=== PATIENT | female | born 1975 | race Caucasian/White ===

== ENCOUNTER 2023-03-12 19:46 | Inpatient (IN) | payer MEDICAID, SELFPAY ==
[2023-03-12 19:25] VITALS: BP 122/71; PULSE 131; RESP 20; TEMP 36.5; O2SAT 100
[2023-03-12 19:53] VITALS: BMI 31.0
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
[2023-03-12] MEDS: gabapentin 300 mg Capsule 600 MG PO (21:28)
[2023-03-12] MEDS: amitriptyline 25 mg Tablet 50 MG PO (21:28)
[2023-03-12] MEDS: atorvastatin 40 mg Tablet PO (21:28)
[2023-03-12] MEDS: ziprasidone hcl 40 mg Capsule PO (21:28)
[2023-03-12] MEDS: tizanidine 4 mg Tablet PO (21:52)
[2023-03-12 22:00] VITALS: BP 122/71; PULSE 131; RESP 20; TEMP 36.5; O2SAT 100
[2023-03-12] MEDS: acetaminophen 325 mg Tablet 650 MG PO (23:55)
[2023-03-13] MEDS: trazodone 50 mg Tablet PO ×3 (01:52→23:30)
[2023-03-13 06:00] VITALS: BP 105/67; PULSE 144; RESP 18; TEMP 36.5; O2SAT 96
[2023-03-13] MEDS: acetaminophen 325 mg Tablet 650 MG PO (06:16)
[2023-03-13] MEDS: neomycin-poly-bacitracin oint 28 gm 1 APPLIC TOPICAL ×3 (06:38→20:03)
[2023-03-13] MEDS: levothyroxine 75 mcg Tablet PO (06:40)
[2023-03-13] MEDS: pantoprazole DR 40 mg Tablet PO ×2 (06:40→20:03)
[2023-03-13 07:58] LABS: Glucose Point of Care 166 mg/dL (70-110)
[2023-03-13] MEDS: gabapentin 300 mg Capsule 600 MG PO ×3 (08:24→20:03)
[2023-03-13] MEDS: metformin XR 500 MG Tablet PO ×2 (08:24→17:28)
[2023-03-13] MEDS: ziprasidone hcl 20 mg Capsule PO (08:24)
[2023-03-13] MEDS: polyethylene glycol 3350 Pkt 17 gm PO ×2 (08:25→20:03)
--- NOTE | 2023-03-13 08:26 | PC.NURSE ---
refused scheduled metoprolol & lisinopril, patient stated her blood pressure was already too low & it'll bottom her out
[2023-03-13 10:09] VITALS: PULSE 137
--- NOTE | 2023-03-13 10:10 | PC.NURSE ---
elevated pulse, patient stated she's fine, just a little anxious offered PRN Vistaril for anxiety, patient refused at this time, stated it doesn't help, causes the opposite affect on her, could make her more nervous patient does not appear to be in any distress
[2023-03-13] MEDS: haloperidol 5 mg Tablet PO (11:29)
--- NOTE | 2023-03-13 11:30 | PC.NURSE ---
PRN HALDOL 5 MG GIVEN PO PER PT C/O AGITATION, UPSET AT GROUP, HAD TO LEAVE GROUP SAID ANOTHER PATIENT WAS TALKING AND WOULDN'T SHUT UP
[2023-03-13] MEDS: calcium carbonate 500 mg Chew Tablet PO (12:22)
[2023-03-13] MEDS: tizanidine 4 mg Tablet PO (12:59)
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
[2023-03-13] MEDS: docusate sodium 100 mg Capsule PO (15:46)
[2023-03-13 17:20] VITALS: BP 109/79; PULSE 129; RESP 18; TEMP 36.3; O2SAT 97
[2023-03-13 18:02] LABS: Glucose Point of Care 147 mg/dL (70-110)
[2023-03-13 19:39] VITALS: BP 112/74; PULSE 109; RESP 16; TEMP 37.1; O2SAT 99
[2023-03-13] MEDS: amitriptyline 25 mg Tablet 50 MG PO (20:03)
[2023-03-13] MEDS: atorvastatin 40 mg Tablet PO (20:03)
[2023-03-13] MEDS: metoprolol succinate ER (24 HR) 25 mg Tablet PO (20:03)
[2023-03-13] MEDS: ziprasidone hcl 40 mg Capsule PO (20:03)
[2023-03-13] MEDS: OLANZapine 5 mg ODT PO (22:01)
[2023-03-14] MEDS: zolpidem 5 mg Tablet PO ×2 (04:36→19:52)
[2023-03-14 06:00] VITALS: BP 101/69; PULSE 114; RESP 18; TEMP 36.6; O2SAT 100
[2023-03-14] MEDS: polyethylene glycol 3350 Pkt 17 gm PO ×2 (06:17→15:10)
[2023-03-14 08:03] LABS: Glucose Point of Care 170 mg/dL (70-110)
[2023-03-14] MEDS: ziprasidone hcl 20 mg Capsule PO (09:06)
[2023-03-14] MEDS: pantoprazole DR 40 mg Tablet PO ×2 (09:06→19:53)
[2023-03-14] MEDS: lisinopril 5 mg Tablet PO (09:06)
[2023-03-14] MEDS: gabapentin 300 mg Capsule 600 MG PO ×3 (09:06→19:52)
[2023-03-14] MEDS: metoprolol succinate ER (24 HR) 25 mg Tablet PO ×2 (09:06→19:52)
[2023-03-14] MEDS: levothyroxine 75 mcg Tablet PO (09:06)
[2023-03-14] MEDS: metformin XR 500 MG Tablet PO ×2 (09:07→17:25)
[2023-03-14] MEDS: OLANZapine 5 mg ODT PO ×3 (09:10→19:57)
[2023-03-14] MEDS: neomycin-poly-bacitracin oint 28 gm 1 APPLIC TOPICAL ×2 (09:11→19:58)
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
[2023-03-14] MEDS: tizanidine 4 mg Tablet PO ×2 (10:37→19:52)
[2023-03-14 12:12] LABS: Glucose Point of Care 145 mg/dL (70-110)
[2023-03-14 14:00] VITALS: BP 101/70; PULSE 100; RESP 18; TEMP 36.6; O2SAT 100
[2023-03-14 17:27] LABS: Glucose Point of Care 165 mg/dL (70-110)
[2023-03-14 19:44] VITALS: BP 127/89; PULSE 96; RESP 18; TEMP 36.4; O2SAT 96
[2023-03-14] MEDS: atorvastatin 40 mg Tablet PO (19:52)
[2023-03-14] MEDS: amitriptyline 25 mg Tablet 50 MG PO (19:52)
[2023-03-14] MEDS: ziprasidone hcl 40 mg Capsule PO (19:52)
[2023-03-14] MEDS: trazodone 50 mg Tablet PO (21:47)
[2023-03-15] MEDS: calcium carbonate 500 mg Chew Tablet PO (02:29)
[2023-03-15] MEDS: levothyroxine 75 mcg Tablet PO (06:08)
[2023-03-15 07:50] LABS: Glucose Point of Care 157 mg/dL (70-110)
[2023-03-15] MEDS: gabapentin 300 mg Capsule 600 MG PO ×3 (09:16→20:08)
[2023-03-15] MEDS: ziprasidone hcl 20 mg Capsule PO (09:16)
[2023-03-15] MEDS: lisinopril 5 mg Tablet PO (09:16)
[2023-03-15] MEDS: metformin XR 500 MG Tablet PO ×2 (09:16→17:59)
[2023-03-15] MEDS: pantoprazole DR 40 mg Tablet PO ×2 (09:16→20:08)
[2023-03-15] MEDS: neomycin-poly-bacitracin oint 28 gm 1 APPLIC TOPICAL ×2 (09:18→20:13)
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
[2023-03-15] MEDS: OLANZapine 5 mg ODT PO ×2 (10:49→20:08)
[2023-03-15 12:07] LABS: Glucose Point of Care 134 mg/dL (70-110)
[2023-03-15] MEDS: acetaminophen 325 mg Tablet 650 MG PO (13:10)
--- NOTE | 2023-03-15 13:12 | PC.NURSE ---
patient given Tylenol for L 4th digit finger pain, purple red around the cuticle. Patient states it was lanced in the ED, no oral antbx started
--- NOTE | 2023-03-15 13:20 | NPU.GN ---
[facility] Topic: outdoor time General Mood of Group patient participated by coming outside, did not throw the football
[2023-03-15 13:29] VITALS: BP 117/73; PULSE 114; RESP 18; TEMP 36.5; O2SAT 98
--- NOTE | 2023-03-15 14:27 | XR_ITS ---
WS: [id number] Exam: XR hand LT min 3V* [id number] Date/Time of Exam: 03/15/2023 2:27 PM Reason For Exam: ring finger cellulitis No fracture or dislocation. No destructive bone changes are noted. Joint structures are well-maintain ed. No soft tissue foreign bodies. IMPRESSION: 1. Negative LEFT hand.
--- NOTE | 2023-03-15 14:29 | PM.CONSULT ---
Providers/Reason For Consult Consulting Physician/Specialty*: Psychiatry Reason for Consult*: Cellulitis Attending Physician: Alo Jon MD Primary Care Provider: Goldy Jeffery DO History of Present Illness History of Present Illness Char Delgado is a 47 year old female with a past medical history of diabetes, hypothyroidism, admitted to neuropsychiatric unit, hospitalist team was consulted as patient's left ring finger has erythema and swelling, and she complains of pain. She tells me that when she was in the ER they lanced it this was roughly a week ago, she was not placed on antibiotics, no fevers, chills, she is able to flex and extend the left finger, she has good capillary refill, but does have pain at the DIP joint, no drainable abscess palpated Review of Systems Const: Denies: fever(s) Card: Denies: chest pain Resp: Denies: dyspnea Skin/Breast: Reports: rash and erythema Medications/Allergies Home Medications Medication Instructions Recorded Confirmed Last Taken Type amitriptyline 50 mg tablet 50 mg PO BEDTIME 03/12/23 03/12/23 Unknown History atorvastatin 40 mg tablet 40 mg PO QPM 03/12/23 03/12/23 Unknown History gabapentin 600 mg tablet 600 mg PO TID 03/12/23 03/12/23 Unknown History glipizide 5 mg tablet 5 mg PO DAILY 03/12/23 03/12/23 Unknown History levothyroxine 75 mcg tablet 75 mcg PO DAILY 03/12/23 03/12/23 Unknown History lisinopril 5 mg tablet 5 mg PO DAILY 03/12/23 03/12/23 Unknown History lorazepam 1 mg tablet 1 mg PO BEDTIME 03/12/23 03/12/23 Unknown History metformin 500 mg tablet,extended 500 mg PO BID 03/12/23 03/12/23 Unknown History release 24hr metoprolol succinate 25 mg 25 mg PO BID 03/12/23 03/12/23 Unknown History tablet,extended release 24 hr rosuvastatin 20 mg tablet 20 mg PO BEDTIME 03/12/23 03/12/23 Unknown History tizanidine 4 mg tablet 4 mg PO Q8H PRN Back Pain 03/12/23 03/12/23 Unknown History ziprasidone HCl 20 mg capsule 20 mg PO DAILY 03/12/23 03/12/23 Unknown History ziprasidone HCl 40 mg capsule 40 mg PO BEDTIME 03/12/23 03/12/23 Unknown History Allergies Allergy/AdvReac Type Severity Reaction Status Date / Time adhesive tape Allergy Severe ALGY-Bliste Verified 03/12/23 21:04 r clindamycin Allergy Severe ALGY-Rash Verified 03/12/23 21:04 cyclobenzaprine Allergy Severe ALGY-Rash Verified 03/12/23 21:04 [From [facility]] Current Medications Generic Name Dose Route Start Last Admin Trade Name Horace PRN Reason Stop Dose Admin Acetaminophen 650 mg 03/12/23 19:50 03/15/23 13:10 Acetaminophen 325 Mg Tablet PO 650 mg Q4H PRN Administration MILD PAIN Amitriptyline HCl 50 mg 03/12/23 21:30 03/14/23 19:52 Amitriptyline 25 Mg Tablet PO 50 mg BEDTIME KATIE Administration Atorvastatin Calcium 40 mg 03/13/23 21:00 03/14/23 19:52 Atorvastatin 40 Mg Tablet PO 40 mg 2100 KATIE Administration Calcium Carbonate 500 mg 03/13/23 11:51 03/15/23 02:29 Calcium Carbonate 500 Mg Chew Tablet PO 500 mg Q4H PRN Administration INDIGESTION Docusate Sodium 100 mg 03/12/23 21:53 03/13/23 15:46 Docusate Sodium 100 Mg Capsule PO 100 mg DAILY PRN Administration CONSTIPATION Gabapentin 600 mg 03/12/23 21:15 03/15/23 09:16 Gabapentin 300 Mg Capsule PO 600 mg TID KATIE Administration Haloperidol 5 mg 03/12/23 19:50 03/13/23 11:29 Haloperidol 5 Mg Tablet PO 5 mg Q4H PRN Administration AGITATION Levothyroxine Sodium 75 mcg 03/15/23 06:00 03/15/23 06:08 Levothyroxine 75 Mcg Tablet PO 75 mcg QAM KATIE Administration Lisinopril 5 mg 03/13/23 09:00 03/15/23 09:16 Lisinopril 5 Mg Tablet PO 5 mg DAILY KATIE Administration Metformin HCl 500 mg 03/13/23 09:00 03/15/23 09:16 Metformin Xr 500 Mg Tablet PO 500 mg BID KATIE Administration Metoprolol Succinate 25 mg 03/13/23 21:00 03/15/23 10:59 Metoprolol Succinate Er (24 Hr) 25 Mg Tablet PO Not Given [phone] [facility] Neomycin/Polymyxin/Bacitracin 1 applic 03/13/23 21:00 03/15/23 09:18 Ndnzwbbc-Ovxd-Luqupwolnm Oint 28 Gm TOPICAL 1 applic 899,2099 KATIE Administration Non-Formulary Medication 5 mg 03/13/23 09:00 03/15/23 10:41 Glipizide PO Not Given DAILY KATIE Non-Formulary Medication 20 mg 03/15/23 11:30 03/15/23 11:50 Viibyrd PO 20 mg DAILY KATIE Administration Olanzapine 5 mg 03/12/23 19:50 03/15/23 10:49 Olanzapine 5 Mg Odt PO 5 mg Q4H PRN Administration Agitation/Psychosis Pantoprazole Sodium 40 mg 03/13/23 21:00 03/15/23 09:[address] 40 Mg Tablet PO 40 mg KATIE Administration Polyethylene Glycol 17 gm 03/14/23 06:19 03/14/23 15:10 Polyethylene Glycol 3350 Pkt 17 Gm PO 17 gm DAILY PRN Administration CONSTIPATION Tizanidine HCl 4 mg 03/12/23 20:49 03/14/23 19:52 Tizanidine 4 Mg Tablet PO 4 mg Q8H PRN Administration Back Pain Trazodone HCl 50 mg 03/12/23 19:50 03/14/23 21:47 Trazodone 50 Mg Tablet PO 50 mg BEDTIME PRN Administration SLEEP Ziprasidone 20 mg 03/13/23 09:00 03/15/23 09:16 Ziprasidone Hcl 20 Mg Capsule PO 20 mg DAILY KATIE Administration Ziprasidone 40 mg 03/12/23 21:00 03/14/23 19:52 Ziprasidone Hcl 40 Mg Capsule PO 40 mg BEDTIME KATIE Administration Zolpidem Tartrate 5 mg 03/14/23 04:28 03/14/23 19:52 Zolpidem 5 Mg Tablet PO 5 mg BEDTIME PRN Administration SLEEP PFSH Acute PFSH: Medical History (Updated 03/15/23 @ 14:32 by Donte Whitt MD) History of diabetes mellitus History of DVT (deep vein thrombosis) History of hypothyroidism Major depressive disorder, recurrent Presence of IVC filter Surgical History (Updated 03/15/23 @ 14:30 by Donte Whitt MD) History of lumbar surgery Family History (Updated 03/15/23 @ 14:31 by Donte Whitt MD) Mother Atrial fibrillation Social History (Updated 03/15/23 @ 14:31 by Donte Whitt MD) Smoking and tobacco status: never smoked Alcohol intake: never Substance/Drug Use: never Vitals/I&O/Wt Last Vital Signs Temp 97.7 F 03/15/23 13:29 Pulse 114 H 03/15/23 13:29 Resp 18 03/15/23 13:29 BP 117/73 03/15/23 13:29 Pulse Ox 98 03/15/23 13:29 O2 Del Method Room Air 03/15/23 13:29 Physical Exam Const: COMMON NORMALS: no acute distress and patient oriented x3 Resp: COMMON NORMALS: normal respiratory effort, No retractions, No use of accessory muscles and clear to auscultation bilaterally AUSCULTATION: clear to auscultation bilaterally Cardio: COMMON NORMALS: regular rate, regular rhythm, S1 normal heart sound present and S2 normal heart sound present RATE: regular rate RHYTHM: regular rhythm HEART SOUNDS: S1 normal heart sound present and S2 normal heart sound present GI: COMMON NORMALS: Normal to inspection, nondistended, normoactive bowel sounds present and non-tender Extremity: COMMON NORMALS: no pedal edema Neuro: COMMON NORMALS: patient oriented x3 Psych: COMMON NORMALS: mental status grossly normal A&P Assessment and plan (1) Cellulitis: Plan Cellulitis, left ring finger, overlying the DIP joint, has some pain with extension and flexion although minimal, good cap refill, no palpable abscess, will treat for cellulitis, doxycycline, Augmentin, order chest x-ray, blood work, will monitor, if it does not respond to antibiotics, or if she has any worsening, will consider inpatient admission for IV antibiotics and surgical consultation, CBC, BMP, ESR, Pro-Lance, sed rate Consult Attestations Medical Necessity Statement: Patient requires hospitalization for cellulitis, left ring finger Diagnoses Cellulitis L03.90
[2023-03-15 16:36] LABS: Basophils # 0.1 10^3/uL (0.0-0.1); Eosinophils # 0.2 10^3/uL (0.0-0.8); Eosinophils % 2.2 %; Hematocrit 29.6 % (36-47); Lymphocytes # 2.4 10^3/uL (0.8-4.8); Lymphocytes % 26.1 %; Mean Corpuscular HGB Conc 32.1 g/dL (30-55); Mean Corpuscular Hemoglobin 29.5 pg (27-33); Mean Corpuscular Volume 91.9 fl (85-98); Mean Platelet Volume 8.8 fL (7.4-10.4); Monocytes # 0.6 10^3/uL (0.2-0.9); Monocytes % 6.7 %; Neutrophils # 5.77 10^3/uL (1.8-7.7); Neutrophils % 63.6 %; Nucleated Red Blood Cells % 0 %; Platelet Count 405 10^3/cmm (157-399); Red Blood Count 3.22 10^6/uL (3.85-5.65); Red Cell Distribution Width 15.9 % (12.1-15.1); White Blood Count 9.08 10^3/uL (3.29-11.43)
[2023-03-15 16:42] LABS: Erythrocyte Sedimentation Rate 12 mm/hr (0-15)
[2023-03-15 17:01] LABS: Anion Gap 12.4 (5-19); Blood Urea Nitrogen 22 mg/dL (6-20); Calcium 8.8 mg/dL (8.5-10.5); Carbon Dioxide 29 mmol/L (22-29); Chloride 98 mmol/L (98-107); Glomerular Filtration Rate 52.8 mL/min (90-130); Glucose 140 mg/dL (65-115); Osmolality Calculated 286 mOsm/kg (285-295); Potassium 4.4 mmol/L (3.5-5.1); Sodium 135 mmol/L (136-145)
[2023-03-15 17:08] LABS: Procalcitonin 0.06 ng/mL (0-0.5)
[2023-03-15 17:38] LABS: Glucose Point of Care 150 mg/dL (70-110)
[2023-03-15] MEDS: tizanidine 4 mg Tablet PO (17:59)
[2023-03-15] MEDS: doxycycline 100 mg Tablet PO (17:59)
[2023-03-15] MEDS: amoxicillin-clav 875-125 mg Tablet 1 TAB PO (17:59)
[2023-03-15 20:05] VITALS: BP 113/78; PULSE 115; RESP 18; TEMP 36.6; O2SAT 100
[2023-03-15] MEDS: polyethylene glycol 3350 Pkt 17 gm PO (20:08)
[2023-03-15] MEDS: zolpidem 5 mg Tablet PO (20:08)
[2023-03-15] MEDS: amitriptyline 25 mg Tablet 50 MG PO (20:08)
[2023-03-15] MEDS: atorvastatin 40 mg Tablet PO (20:08)
[2023-03-15] MEDS: ziprasidone hcl 40 mg Capsule PO (20:08)
[2023-03-15] MEDS: metoprolol succinate ER (24 HR) 25 mg Tablet PO (20:08)
[2023-03-15] MEDS: trazodone 50 mg Tablet PO (20:08)
[2023-03-16] MEDS: tizanidine 4 mg Tablet PO ×3 (03:18→20:10)
[2023-03-16 06:00] VITALS: BP 106/73; PULSE 83; RESP 16; TEMP 36.4; O2SAT 95
[2023-03-16] MEDS: levothyroxine 75 mcg Tablet PO (06:09)
[2023-03-16 07:54] LABS: Glucose Point of Care 138 mg/dL (70-110)
[2023-03-16] MEDS: doxycycline 100 mg Tablet PO ×2 (08:26→17:33)
[2023-03-16] MEDS: lisinopril 5 mg Tablet PO (08:27)
[2023-03-16] MEDS: amoxicillin-clav 875-125 mg Tablet 1 TAB PO ×2 (08:27→17:33)
[2023-03-16] MEDS: gabapentin 300 mg Capsule 600 MG PO ×3 (08:27→20:09)
[2023-03-16] MEDS: metoprolol succinate ER (24 HR) 25 mg Tablet PO ×2 (08:27→20:09)
[2023-03-16] MEDS: metformin XR 500 MG Tablet PO ×2 (08:27→17:33)
[2023-03-16] MEDS: ziprasidone hcl 20 mg Capsule PO (08:27)
[2023-03-16] MEDS: pantoprazole DR 40 mg Tablet PO ×2 (08:27→20:09)
[2023-03-16] MEDS: neomycin-poly-bacitracin oint 28 gm 1 APPLIC TOPICAL (08:28)
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
[2023-03-16 11:40] LABS: Glucose Point of Care 186 mg/dL (70-110)
[2023-03-16] MEDS: OLANZapine 5 mg ODT PO (12:12)
[2023-03-16] MEDS: haloperidol 5 mg Tablet PO (13:04)
[2023-03-16 14:00] VITALS: BP 105/67; PULSE 86; RESP 18; TEMP 37; O2SAT 98
[2023-03-16 17:23] LABS: Glucose Point of Care 120 mg/dL (70-110)
[2023-03-16] MEDS: polyethylene glycol 3350 Pkt 17 gm PO (17:39)
[2023-03-16] MEDS: zolpidem 5 mg Tablet 10 MG PO (19:46)
[2023-03-16 19:55] VITALS: BP 125/81; PULSE 106; RESP 18; O2SAT 100
[2023-03-16] MEDS: trazodone 50 mg Tablet PO (20:09)
[2023-03-16] MEDS: atorvastatin 40 mg Tablet PO (20:09)
[2023-03-16] MEDS: amitriptyline 25 mg Tablet 50 MG PO (20:09)
[2023-03-16] MEDS: ziprasidone hcl 40 mg Capsule PO (20:09)
[2023-03-17] MEDS: acetaminophen 325 mg Tablet 650 MG PO ×2 (02:49→14:14)
[2023-03-17 06:00] VITALS: BP 99/66; PULSE 79; RESP 16; TEMP 36.7; O2SAT 97
[2023-03-17] MEDS: levothyroxine 75 mcg Tablet PO (07:04)
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
[2023-03-17 08:04] LABS: Glucose Point of Care 158 mg/dL (70-110)
[2023-03-17] MEDS: pantoprazole DR 40 mg Tablet PO ×2 (09:33→20:34)
[2023-03-17] MEDS: gabapentin 300 mg Capsule 600 MG PO ×3 (09:33→20:34)
[2023-03-17] MEDS: doxycycline 100 mg Tablet PO ×2 (09:33→17:46)
[2023-03-17] MEDS: lisinopril 5 mg Tablet PO (09:33)
[2023-03-17] MEDS: amoxicillin-clav 875-125 mg Tablet 1 TAB PO ×2 (09:33→17:46)
[2023-03-17] MEDS: metformin XR 500 MG Tablet PO ×2 (09:34→17:46)
[2023-03-17] MEDS: neomycin-poly-bacitracin oint 28 gm 1 APPLIC TOPICAL ×2 (09:34→20:38)
[2023-03-17] MEDS: metoprolol succinate ER (24 HR) 25 mg Tablet PO ×2 (09:34→20:35)
[2023-03-17] MEDS: tizanidine 4 mg Tablet PO ×2 (09:34→18:35)
--- NOTE | 2023-03-17 10:38 | CTR_ITS ---
PROCEDURE INFORMATION: Exam: CT Left Upper Extremity Without Contrast, Hand Exam date and time: 03/17/2023 12:11 PM Age: 47 years old Clinical indication: Swelling; Fingers; Left; Additional info: Ring finger erythema, swelling, draiange TECHNIQUE: Imaging protocol: Computed tomography of the left upper extremity without contrast. Exam focused on the hand. Radiation optimization: All CT scans at this facility use at least one of these dose optimization techniques: automated exposure control; mA and/or kV adjustment per patient size (includes targeted exams where dose is matched to clinical indication); or iterative reconstruction. REPORTING DATA: Count of CT and Cardiac NM exams in prior 12 months: This patient has received 0 known CTs and 0 known cardiac nuclear medicine studies in the 12 months prior to the current study. COMPARISON: CR XR hand LT min 3V* [id number] 03/15/2023 2:44 PM RADIATION DOSE METRICS: Total DLP (mGy-cm): 131.68 FINDINGS: Bones/joints: See Soft tissues finding. Soft tissues: Mild cysts palmar soft tissue edema seen at the wrist. No fracture. Thickening of the tissues with inflammatory changes in the dorsal soft tissues involving the 4th digit at the area of the distal middle phalanx and proximal distal phalanx. No definite fluid collection. CT/CT hand LT wo con* [id number] IMPRESSION: Questionable dorsal cellulitis 4th digit. MRI is recommended for better evaluation.
[2023-03-17] MEDS: ziprasidone hcl 40 mg Capsule PO ×2 (11:46→20:34)
[2023-03-17 14:10] VITALS: BP 100/67; PULSE 82; RESP 17; TEMP 36.5; O2SAT 97
[2023-03-17] MEDS: OLANZapine 5 mg ODT PO (15:38)
--- NOTE | 2023-03-17 16:12 | PM.PN ---
Subjective Subjective: Patient was seen this morning, she tells me that her ring finger erythema is improving, continues to have intermittent drainage, no fevers, no chills Vitals/I&O/Wt Last Vital Signs Temp 97.7 F 03/17/23 14:10 Pulse 82 03/17/23 14:10 Resp 17 03/17/23 14:10 BP 100/67 03/17/23 14:10 Pulse Ox 97 03/17/23 14:10 O2 Del Method Room Air 03/17/23 14:10 03/17/23 03/17/23 03/17/23 06:59 14:59 22:59 Intake Total 120 / 120 Balance 120 / 120 Weight last 48 hrs Weight 97.522 kg Physical Exam Const: COMMON NORMALS: no acute distress and patient oriented x3 Resp: COMMON NORMALS: normal respiratory effort, No retractions, No use of accessory muscles and clear to auscultation bilaterally AUSCULTATION: clear to auscultation bilaterally Cardio: COMMON NORMALS: regular rate, regular rhythm, S1 normal heart sound present and S2 normal heart sound present RATE: regular rate RHYTHM: regular rhythm HEART SOUNDS: S1 normal heart sound present and S2 normal heart sound present GI: COMMON NORMALS: Normal to inspection, nondistended, normoactive bowel sounds present and non-tender Extremity: COMMON NORMALS: no pedal edema Neuro: COMMON NORMALS: patient oriented x3 Psych: COMMON NORMALS: mental status grossly normal Data 03/15/23 16:28 03/15/23 16:28 A&P Assessment and plan (1) Cellulitis: Plan Cellulitis, left ring finger, overlying the DIP joint, has some pain with extension and flexion although minimal, good cap refill, no palpable abscess, will treat for cellulitis, doxycycline, Augmentin, due to persistent erythema I am going to order CT today Attestations Medical Necessity Statement*: Patient requires hospitalization cellulitis, left ring finger Diagnoses Cellulitis L03.90
[2023-03-17 17:28] LABS: Glucose Point of Care 156 mg/dL (70-110)
[2023-03-17 20:01] VITALS: BP 123/85; PULSE 109; RESP 16; TEMP 36.6; O2SAT 100
[2023-03-17] MEDS: trazodone 50 mg Tablet PO (20:34)
[2023-03-17] MEDS: amitriptyline 25 mg Tablet 50 MG PO (20:34)
[2023-03-17] MEDS: zolpidem 5 mg Tablet 10 MG PO (20:34)
[2023-03-17] MEDS: ibuprofen 600 mg Tablet PO (20:35)
[2023-03-17] MEDS: atorvastatin 40 mg Tablet PO (20:35)
[2023-03-18] MEDS: acetaminophen 325 mg Tablet 650 MG PO (03:11)
[2023-03-18 06:00] VITALS: BP 114/75; PULSE 92; RESP 16; TEMP 36.7; O2SAT 96
[2023-03-18] MEDS: levothyroxine 75 mcg Tablet PO (06:13)
[2023-03-18 07:55] LABS: Glucose Point of Care 177 mg/dL (70-110)
--- NOTE | 2023-03-18 08:14 | PC.NURSE ---
During morning assessment, patient denied all. Patient stated that in the last month, she has been hospitalized two other times. She said that she was just saying the right words to be released. But presenlty, she feels authentic . Patient says that she doesn't want to kill herself because she doesn't want to leave that legacy for my kids . 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
[2023-03-18] MEDS: tizanidine 4 mg Tablet PO ×2 (08:17→17:37)
[2023-03-18] MEDS: pantoprazole DR 40 mg Tablet PO ×2 (08:17→19:54)
[2023-03-18] MEDS: doxycycline 100 mg Tablet PO ×2 (08:17→17:37)
[2023-03-18] MEDS: ziprasidone hcl 40 mg Capsule PO ×2 (08:17→19:53)
[2023-03-18] MEDS: lisinopril 5 mg Tablet PO (08:17)
[2023-03-18] MEDS: metoprolol succinate ER (24 HR) 25 mg Tablet PO ×2 (08:17→19:54)
[2023-03-18] MEDS: metformin XR 500 MG Tablet PO ×2 (08:17→17:37)
[2023-03-18] MEDS: amoxicillin-clav 875-125 mg Tablet 1 TAB PO (08:17)
[2023-03-18] MEDS: gabapentin 300 mg Capsule 600 MG PO ×3 (08:18→19:53)
[2023-03-18] MEDS: neomycin-poly-bacitracin oint 28 gm 1 APPLIC TOPICAL ×2 (08:35→19:56)
[2023-03-18] MEDS: blistex lip oint 7 gm Tube 1 APPLIC TOPICAL (09:07)
[2023-03-18 10:04] LABS: Glucose Point of Care 238 mg/dL (70-110)
[2023-03-18 12:07] LABS: Glucose Point of Care 187 mg/dL (70-110)
[2023-03-18] MEDS: OLANZapine 5 mg ODT PO (12:41)
--- NOTE | 2023-03-18 12:41 | PC.NURSE ---
Patient reporting chest pain and anxiety. This nurse checked VS. They were as follows: 120/63, HR 104, o2 sat: 98%, 98.4. Patient given zyprexa 5mg ODT. will watch closely
--- NOTE | 2023-03-18 12:54 | ECG_ITS ---
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 Measurements Intervals [place] Rate: 91 P: 55 HI: 167 QRS: 31 QRSD: 93 T: 48 QT: 381 QTc: 470 Interpretive Statements SINUS RHYTHM POSSIBLE LEFT ATRIAL ENLARGEMENT [-0.1mV P-WAVE IN V1/V2] No previous ECG available for comparison Electronically Signed On 03-18-2023 21:25:06 CDT by Rhonda Zimmerman M.D. [id number]
[2023-03-18 13:15] VITALS: BP 113/74; PULSE 95; RESP 18; TEMP 36.9; O2SAT 99
[2023-03-18] MEDS: ibuprofen 600 mg Tablet PO (13:19)
--- NOTE | 2023-03-18 13:19 | PC.NURSE ---
Shortly after administering Zyprexa, this nurse checked on patient. Patient still experiencing sharp chest pain and now left-sided jaw pain. This nurse notified Dr. Jon who gave verbal order for stat EKG. EKG performed. Dr. Jon and Dr. Whitt notified or results. Dr. Whitt ordered troponin levels to be drawn along with nitrostat PRN chest pain.
--- NOTE | 2023-03-18 13:22 | PM.PN ---
Subjective Subjective: - Patient was seen this morning, she tells me that the drainage and erythema of her left ring finger has significantly improved, no fevers, no pain -Later on in the morningby nursing staff as patient's blood sugars have been in the 200s we will start her on insulin sliding scale -Earlier in the afternoon, scholar nursing staff as patient was complaining of chest pain, currently has abated, radiating to the jaw, her initial EKG has no acute ST-T wave changes, continue to monitor, nitro as needed for chest pain, start aspirin 81 mg, serial EKGs, serial troponins -Left ring finger, erythema, DIP joint significantly improved no drainage, has good X extension, flexion, cap refill Vitals/I&O/Wt Last Vital Signs Temp 98.4 F 03/18/23 13:15 Pulse 95 03/18/23 13:15 Resp 18 03/18/23 13:15 BP 113/74 03/18/23 13:15 Pulse Ox 99 03/18/23 13:15 O2 Del Method Room Air 03/18/23 13:15 03/17/23 03/18/23 03/18/23 22:59 06:59 14:59 Intake Total 240 / 360 Balance 240 / 360 Weight last 48 hrs Weight 97.522 kg Physical Exam Const: COMMON NORMALS: no acute distress and patient oriented x3 Resp: COMMON NORMALS: normal respiratory effort, No retractions, No use of accessory muscles and clear to auscultation bilaterally AUSCULTATION: clear to auscultation bilaterally Cardio: COMMON NORMALS: regular rate, regular rhythm, S1 normal heart sound present and S2 normal heart sound present RATE: regular rate RHYTHM: regular rhythm HEART SOUNDS: S1 normal heart sound present and S2 normal heart sound present GI: COMMON NORMALS: Normal to inspection, nondistended, normoactive bowel sounds present and non-tender Extremity: COMMON NORMALS: no pedal edema Neuro: COMMON NORMALS: patient oriented x3 Psych: COMMON NORMALS: mental status grossly normal Data 03/15/23 16:28 03/15/23 16:28 A&P Assessment and plan (1) Cellulitis: Plan - Patient was seen this morning, she tells me that the drainage and erythema of her left ring finger has significantly improved, no fevers, no pain -Later on in the morningby nursing staff as patient's blood sugars have been in the 200s we will start her on insulin sliding scale -Earlier in the afternoon, scholar nursing staff as patient was complaining of chest pain, currently has abated, radiating to the jaw, her initial EKG has no acute ST-T wave changes, continue to monitor, nitro as needed for chest pain, start aspirin 81 mg, serial EKGs, serial troponins -Left ring finger, erythema, DIP joint significantly improved no drainage, has good X extension, flexion, cap refill Attestations Medical Necessity Statement*: Patient requires hospitalization due to chest pain, cellulitis left ring finger Diagnoses Cellulitis L03.90
[2023-03-18 14:04] LABS: Troponin(5th) Baseline 7 ng/L (0-10)
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
[2023-03-18] MEDS: aspirin 81 mg EC Tablet PO (15:01)
--- NOTE | 2023-03-18 15:06 | ECG_ITS ---
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 Measurements Intervals [place] Rate: 86 P: 65 NH: 164 QRS: 24 QRSD: 91 T: 47 QT: 386 QTc: 463 Interpretive Statements SINUS RHYTHM POSSIBLE LEFT ATRIAL ENLARGEMENT [-0.1mV P-WAVE IN V1/V2] Compared to ECG 03/18/2023 13:00:05 No significant changes Electronically Signed On 03-18-2023 21:34:40 CDT by Rhonda Zimmerman M.D. [id number]
[2023-03-18 16:04] LABS: Troponin 5 2HR 7.52 ng/L (0-10)
[2023-03-18 16:40] LABS: Troponin 5 2HR Delta 0.52 ABS# (0-10)
[2023-03-18] MEDS: cefdinir 300 MG CAPSULE PO (17:38)
[2023-03-18 17:47] LABS: Glucose Point of Care 112 mg/dL (70-110)
--- NOTE | 2023-03-18 19:06 | ECG_ITS ---
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 Measurements Intervals [place] Rate: 76 P: 49 VT: 171 QRS: 17 QRSD: 99 T: 48 QT: 412 QTc: 464 Interpretive Statements SINUS RHYTHM POSSIBLE LEFT ATRIAL ENLARGEMENT [-0.1mV P-WAVE IN V1/V2] LOW QRS VOLTAGE IN PRECORDIAL LEADS [QRS DEFLECTION < 1.0 mV IN CHEST LEADS] Compared to ECG 03/18/2023 15:21:12 Low QRS voltage now present Electronically Signed On 03-18-2023 21:32:40 CDT by Rhonda Zimmerman M.D. [id number]
[2023-03-18] MEDS: amitriptyline 25 mg Tablet 50 MG PO (19:53)
[2023-03-18] MEDS: zolpidem 5 mg Tablet 10 MG PO (19:53)
[2023-03-18] MEDS: atorvastatin 40 mg Tablet PO (19:53)
[2023-03-18] MEDS: trazodone 50 mg Tablet PO (19:53)
[2023-03-18 19:57] VITALS: BP 103/70; PULSE 80; RESP 16; TEMP 36.3; O2SAT 98
[2023-03-18 20:39] LABS: Glucose Point of Care 118 mg/dL (70-110)
[2023-03-19] MEDS: levothyroxine 75 mcg Tablet PO (06:31)
[2023-03-19 06:42] VITALS: BP 112/76; PULSE 87; RESP 15; TEMP 36.7; O2SAT 99
[2023-03-19 07:51] LABS: Glucose Point of Care 177 mg/dL (70-110)
[2023-03-19] MEDS: insulin lispro 100 unit/1 mL SUBCUT ×2 (09:25→13:53)
[2023-03-19] MEDS: pantoprazole DR 40 mg Tablet PO (09:27)
[2023-03-19] MEDS: lisinopril 5 mg Tablet PO (09:27)
[2023-03-19] MEDS: gabapentin 300 mg Capsule 600 MG PO ×2 (09:27→15:20)
[2023-03-19] MEDS: tizanidine 4 mg Tablet PO ×2 (09:27→17:53)
[2023-03-19] MEDS: cefdinir 300 MG CAPSULE PO ×2 (09:27→17:16)
[2023-03-19] MEDS: ziprasidone hcl 40 mg Capsule PO (09:27)
[2023-03-19] MEDS: doxycycline 100 mg Tablet PO ×2 (09:28→17:17)
[2023-03-19] MEDS: metformin XR 500 MG Tablet PO ×2 (09:28→17:17)
[2023-03-19] MEDS: metoprolol succinate ER (24 HR) 25 mg Tablet PO (09:28)
[2023-03-19] MEDS: aspirin 81 mg EC Tablet PO (09:28)
[2023-03-19] MEDS: neomycin-poly-bacitracin oint 28 gm 1 APPLIC TOPICAL (09:29)
[2023-03-19] MEDS: ondansetron 4 MG Tablet PO (11:11)
[2023-03-19 11:32] LABS: Glucose Point of Care 197 mg/dL (70-110)
[2023-03-19 13:31] LABS: Glucose Point of Care 172 mg/dL (70-110)
[2023-03-19] MEDS: OLANZapine 5 mg ODT PO (13:36)
[2023-03-19 14:18] VITALS: BP 109/70; PULSE 90; RESP 15; TEMP 36.7; O2SAT 99
[2023-03-19 15:00] VITALS: BP 109/70; PULSE 90; RESP 15; TEMP 36.7; O2SAT 99
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
[2023-03-19 16:59] LABS: Glucose Point of Care 118 mg/dL (70-110)
== END 2023-03-19 19:15 | disposition home or self-care (01) | DRG 914 ==
PROVIDERS: Family Medicine; Admitting Provider Psychiatry & Neurology Psychiatry; PCP Family Medicine Geriatric Medicine; Visit Provider Psychiatry & Neurology Psychiatry
DX: T14.91XA Suicide attempt, initial encounter (principal); F33.9 Major depressive disorder, recurrent, unspecified; L03.012 Cellulitis of left finger; X78.9XXA Intentional self-harm by unspecified sharp object, initial encounter; Z62.810 Personal history of physical and sexual abuse in childhood; Z62.811 Personal history of psychological abuse in childhood; E11.9 Type 2 diabetes mellitus without complications; R07.9 Chest pain, unspecified; Z81.8 Family history of other mental and behavioral disorders; F41.1 Generalized anxiety disorder
CPT/HCPCS: 36415; 36416; 73130; 73200; 80048; 82962; 84145; 84484; 85025; 85651; 86140; 93005; 96372; 97150; 97165; 99238; J1815; Q0162